=== PATIENT | male | born 1950 | race Caucasian/White ===

== ENCOUNTER 2024-06-09 07:21 | Day surgery (SDC) | payer BC, MEDICARE ==
[2024-06-06 16:29] VITALS: BMI 27.4
[2024-06-09] MEDS ORDERED: MIDAZOLAM HCL 2 MG/2 ML SINGLE DOSE VIAL ONE (09:31)
[2024-06-09] MEDS ORDERED: FENTANYL CITRATE/PF 50 MCG/ML VIAL ONE (09:31)
[2024-06-09] MEDS ORDERED: BACITRACIN ZINC 15 GM TUBE TOPICAL OINTMENT ONE (09:34)
[2024-06-09] MEDS ORDERED: ONDANSETRON 4 MG/2 ML VIAL IVPUSH PRN (10:12)
[2024-06-09] MEDS ORDERED: LACTATED RINGERS SOLUTION 1,000 ML IV SCH (10:15)
[2024-06-09 11:01] VITALS: RESP 18; TEMP 97.2
[2024-06-09 11:55] VITALS: BP 153/86; PULSE 64
== END 2024-06-09 11:40 | disposition home or self-care (01) ==
LOC: FASU 07:21
PROVIDERS: ATTEND Urology
PROC: 0VB03ZX Excision of Prostate, Percutaneous Approach, Diagnostic (ICD-10-PCS; principal; 2024-06-09 09:51)
DX: R97.20 Elevated prostate specific antigen [PSA] (principal)
CPT/HCPCS: 88305-TC; 88342-TC; 94760